=== PATIENT | female | born 1985 ===

== ENCOUNTER 2018-11-15 20:22 | Emergency (ER) | payer SELFPAY ==
[~2018-11-15] VITALS: Ht 160 cm; Wt 75.0 kg
[2018-11-15 20:26] VITALS: BP 137/85
== END 2018-11-15 21:08 | disposition home or self-care (01) ==
LOC: ED 21:00
DX: F32.9 Major depressive disorder, single episode, unspecified (principal); F10.10 Alcohol abuse, uncomplicated
CPT/HCPCS: 99284